=== PATIENT | female | born 1940 | race Caucasian/White ===

== ENCOUNTER → 2025-06-12 17:03 | Outpatient (CLI) | payer MEDICARE, OTHER, SELFPAY ==
[2025-06-12 17:23] LABS: Add Manual Diff / Slide Review NO; Hematocrit 35.2 % (36-46); Hemoglobin 11.9 g/dL (12.0-16.0); Lymphocytes Absolute Auto 1000 /uL (1100-4500); Mean Corpuscular HGB Conc 33.7 % (30-36); Mean Corpuscular Hemoglobin 30.2 PG (26-34); Mean Corpuscular Volume 89.6 fL (80-100); Platelet Count 299 X10^3/uL (150-400)
[2025-06-12 17:47] LABS: Alanine Aminotransferase 18 IU/L (<35); Albumin 3.7 g/dL (3.5-5.0); Albumin Globulin Ratio 1.4 (1.0-2.8); Alkaline Phosphatase 70 U/L (38-126); Blood Urea Nitrogen 20 mg/dL (7-17); Calcium 9.3 mg/dL (8.4-10.2); Carbon Dioxide 28 mmol/L (22-32); Chloride 100 mmol/L (98-107); Estimated Glomerular Filt Rate > 60 mL/min (>60); Globulin 2.7 g/dL (1.7-4.1); Glucose 97 mg/dL (70-99); HEMOLYSIS < 15 (0-50); Potassium 4.3 mmol/L (3.4-5.1); Sodium 135 mmol/L (137-145); Total Protein 6.4 g/dL (6.3-8.2)
[2025-06-12 18:17] LABS: Carcinoembryonic Antigen 1.2 ng/mL (0.1-3.0)
[2025-06-13 06:40] LABS: Cancer (Carbohydrate) Ag 19-9 8 U/mL (0-35)
== END ==
LOC: LAB 17:07
PROVIDERS: Referring Provider Physician Assistant; Visit Provider Physician Assistant
DX: C15.5 Malignant neoplasm of lower third of esophagus (principal)
CPT/HCPCS: 36415; 80053; 82378; 85025; 86301

== ENCOUNTER → 2025-09-27 10:11 | Outpatient (CLI) | payer MEDICARE, SELFPAY ==
[2025-09-27 12:07] LABS: Add Manual Diff / Slide Review NO; Hematocrit 38.7 % (36-46); Hemoglobin 13.3 g/dL (12.0-16.0); Lymphocytes Absolute Auto 1700 /uL (1100-4500); Mean Corpuscular HGB Conc 34.5 % (30-36); Mean Corpuscular Hemoglobin 29.3 PG (26-34); Mean Corpuscular Volume 84.8 fL (80-100); Platelet Count 261 X10^3/uL (150-400)
[2025-09-27 12:22] LABS: HEMOLYSIS < 15 (0-50); Iron 84 ug/dL (37-170)
[2025-09-27 12:29] LABS: Alanine Aminotransferase 15 IU/L (<35); Albumin 4.3 g/dL (3.5-5.0); Albumin Globulin Ratio 1.5 (1.0-2.8); Alkaline Phosphatase 92 U/L (38-126); Blood Urea Nitrogen 18 mg/dL (7-17); Calcium 9.6 mg/dL (8.4-10.2); Carbon Dioxide 27 mmol/L (22-32); Chloride 100 mmol/L (98-107); Estimated Glomerular Filt Rate > 60 mL/min (>60); Globulin 2.8 g/dL (1.7-4.1); Glucose 94 mg/dL (70-99); HEMOLYSIS < 15 (0-50); Potassium 4.5 mmol/L (3.4-5.1); Sodium 135 mmol/L (137-145); Total Protein 7.1 g/dL (6.3-8.2)
[2025-09-27 12:38] LABS: Percent Iron Saturation 29 % (15-50); Total Iron Binding Capacity 291 ug/dL (265-497); Transferrin 264 mg/dL (206-381)
[2025-09-27 13:03] LABS: Thyroid Stimulating Hormone 1.07 uIU/mL (0.47-4.68)
[2025-09-27 13:06] LABS: Ferritin 44 ng/mL (11-264)
[2025-09-27 13:38] LABS: Folate > 20.0 ng/mL (2.76-20.0); Vitamin B12 794 pg/mL (239-931)
== END ==
LOC: LAB 10:13
PROVIDERS: PCP Student in an Organized Health Care Education/Training Program; Referring Provider Student in an Organized Health Care Education/Training Program; Visit Provider Student in an Organized Health Care Education/Training Program
DX: L65.9 Nonscarring hair loss, unspecified (principal)
CPT/HCPCS: 36415; 80053; 82607; 82728; 82746; 83540; 83550; 84443; 85025

== ENCOUNTER → 2025-10-09 07:59 | Outpatient (CLI) | payer MEDICARE, SELFPAY ==
--- NOTE | 2025-10-09 08:01 | DI.MRI.S_ITS ---
PROCEDURE: MR HIP RT WO/W CON INDICATIONS: right hip pain. TECHNIQUE: Noncontrast coronal T1 spin echo and STIR through the bony pelvis. Coronal and axial T2 fast spin echo with fat saturation, axial T1 spin echo with fat saturation, sagittal T1 spin echo, and oblique axial T2 fast spin echo with fat saturation through the hip. Post-contrast axial, coronal, and sagittal spin echo with fat saturation through the hip. COMPARISON: [facility], CR, ORTHO-XR HIP RT 2V, 10/03/2025, 8:58. FINDINGS: Quality: Adequate. Hip: Labrum: Complex tearing of the anterosuperior labrum likely degenerative.. Cartilage: Full-thickness cartilage loss along the superior femoral head with subchondral marrow edema like lesion. Joint: No effusion. Bone: No fracture. No avascular necrosis. Muscles and tendons: Chronic partial tear of right common hamstring tendon origin suspected. Bursa: Trochanteric bursa: Nondistended. Iliopsoas bursa: Nondistended. Other: Internal fixation of left proximal femur. Partial tear of left common hamstring tendon origin. Severe degenerative changes of the spine. Diverticulosis. IMPRESSION: Severe right hip osteoarthritis. Chronic hamstring tendon tears. Dictated by: Aman Heard M.D. on 10/09/2025 at 15:52 Approved by: Aman Heard M.D. on 10/09/2025 at 15:59
--- OUTSIDE RECORDS SUMMARY | 2025-10-11 09:30 | XMS_ITS | Encounter Summary ---
Author Organization [facility] Address [address] [place] [address] Care Team Providers Care Family Service Aide Name Role Phone Yefri Means MD Primary Care Provider Jorje Harrison MD Unavailable [phone] Marshal Gallagher MD Unavailable [phone] Catherine Nieves MD Unavailable [phone] Laila Farris MD Unavailable [phone] Samm Agee MD Unavailable [phone] Edmund Morrison MD Unavailable [phone] Unavailable Unavailabl e Encounter Details Date Type Department Care Team (Late st Contact Info) Description 10/11/2025 9:30 AM PST Office Visit [facility] [place] [address] [facility], [address] [place] [address] Ant Urbano MD [address] [facility] [id number] [place] [address] Dx: Nonrheumatic aortic valve stenosis (Primary Dx) Discharge Disposition: HOME/SELF CARE Social History Tobacco Use Types Packs/Day Years Used Date Smoking Tobacco: Never Smokeless Tobacco: Never Alcohol Use Standard Drinks/Week Comments Not Currently 0 (1 standard drink = 0.6 oz pur e alcohol) occaisional Comments Unknown Sex and Gender Information Value Date Recorded Sex Assigned at Female 04/11/2025 7:41 PM PDT Legal Sex Female 9:18 AM PST Gender Identity Female 04/11/2025 7:41 PM PDT Sexual Orientation Straight 04/11/2025 7: 41 PM PDT documented as of this encounter Last Filed Vital Signs Vital Sign Reading Time Taken Comments Blood Pressure 134/71 10/11/2025 9:58 AM PST Pulse 103 10/11/2025 9:58 AM PST Temperature 36.3 C (97.3 F) 10/11/2025 9:58 AM PST Respiratory Rate - - Oxygen Saturation 95% 10/11/2025 9:58 AM PST Inhaled Oxygen Concentration - - Weight 48.9 kg (107 lb 12.8 oz) 10/11/2025 9:58 AM PST Height 160 cm (5' 3) 10/11/2025 9:58 AM PST Body Mass Index 19.1 10/11/2025 9:58 AM PST documented in this encounter Plan of Treatment Upcoming Encounters Date Type Department Care Team (Latest Contact Info) Description 10/11/2025 12:51 PM PST Hospital Encounter [facility] [address] [facility], [address] [place] [address] Dx: Aortic valve stenosis, nonrheumatic Scheduled Orders Name Type Priority Associated Diagnoses Orde r Schedule EKG 12-Lead ECG Routine Nonrheumatic aortic valve stenosis Ordered: 10/10/2025 Scheduled Procedures Name Priority Associated Diagnoses Date/Ti me TRANSCATHETER AORTIC VALVE REPLACEMENT (TAVR) Aortic stenosis documented as of this encounter Visit Diagnoses Diagnosis Nonrheumatic aortic valve stenosis- Primary Aortic valve disorders Aortic valve stenosis, nonrheumatic Aortic valve disorders documented in this encounter Care Teams Family Service Aide Relationship Specialty Start Date End Date Yefri Means MD [facility] [address] [place] [address] PCP - General Internal Medicine 03/27/25 Jorje Harrison MD [address] [place] [id number] Otolaryngology 03/27/25 Marshal Gallagher MD [facility] [address] [place], [place] [id number] Gastroenterology 03/27/25 Catherine Nieves MD [address] [place] [address] [address] [place] [address] Cardiology 03/27/25 Laila Farris MD [address] [place] [address] Oncologist Medical Oncology 03/28/25 Samm Agee MD [address] [place] [address] Radiation Oncology 03/28/25 Edmund Morrison MD [address] [facility] [id number] [place] [address] Surgical Oncologist General Surgery 04/09/25 Shari Cool, [place] [address] [facility] [id number] [place] [address] Dietitian Dietitian-Data Compiler 04/18/25 documented as of this encounter
--- OUTSIDE RECORDS SUMMARY | 2025-10-11 10:00 | XMS_ITS | Encounter Summary ---
Author Organization [facility] Address [address] [place] [address] Care Team Providers Care Naturopathic Oncology Provider Name Role Phone Yefri Means MD Primary Care Provider Jorje Harrison MD Unavailable [phone] Marshal Gallagher MD Unavailable [phone] Catherine Nieves MD Unavailable [phone] Laila Farris MD Unavailable [phone] Samm Agee MD Unavailable [phone] Edmund Morrison MD Unavailable [phone] Unavailable Unavailabl e Reason for Referral * Tests (Routine) - Pending Review Specialty Diagnoses / Procedures Referred By Kai t Referred To Contact Diagnoses Aortic stenosis Procedures TransTHORACIC echo (TTE) complete [place] PA-C [address] [place] [address] Phone: tel: fax: [facility] [address] [facility], [address] [place] [address] Phone: tel: Referral ID Status Reason Start Date Expiration Date Visits Requested Visits Authorized [id number] Pending Review Cardiac Ultrasound 11/10/2026 1 1 Reason for Visit * Specialty Visit (Urgent) - Closed Specialty Diagnoses / Procedures Referred By Contac t Referred To Contact Cardiology Diagnoses Nonrheumatic aortic (valve) stenosis Procedures eval and treat - TAVEvi Delvalle MD [facility] [address] [place] [address] Phone: tel: fax: [facility] [address] [place] [address] Phone: tel: fax: Referral ID Status Reason Start Date Expiration Date V isits Requested Visits Authorized [id number] Closed Structural Heart 10/07/2025 10/07/2026 1 1 Encounter Details Date Type Department Care Team ([facility] st Contact Info) Description 10/11/2025 10:00 AM PST Office Visit [facility] [address] [place] [address] Liam Gaona MD [address] [facility] [id number] [place] [address] Dx: Nonrheumatic aortic valve stenosis (Primary Dx) Discharge Disposition: 01 HOME/SELF CARE Social History Tobacco Use Types [...] Time Taken Comments Blood Pressure 134/71 10/11/2025 10:01 AM PST Pulse 103 10/11/2025 10:01 AM PST Temperature 36.3 C (97.3 F) 10/11/2025 10:01 AM PST Respiratory Rate - - Oxygen Saturation 95% 10/11/2025 10: 01 AM PST Inhaled Oxygen Concentration - - Weight 48.9 kg (107 lb 12.8 oz) 025 10:01 AM PST Height 160 cm (5' 3) 10/11/2025 10:01 AM PST Body Mass Index 19.1 10/11/2025 10:01 AM PST documented in this encounter Patient Instructions * Patient Instructions* Fang Love, RN - 10/11/2025 10:00 AM PST Today, you were evaluated for Transcatheter Aortic Valve Replacement (TAVR) at the [facility]. This evaluation process can be complex and may require multiple tests to ensure that you are being treated appropriately and safely. You were seen by: Pathologist: Dr. Gaona Cardiac Surgeon: Dr. Urbano Additional pre-procedure assessments: [x] CT Scan @ 3:45pm [] Pre-Anesthesia Health Assessment (PHA) Questionnaire [] KCCQ Questionnaire [] ECG [] Heart Team Meeting review --> Our providers will formally review your case & imaging are our next Heart Team meeting and determine whether open heart surgery or a transcatheter procedure is more appropriate for you. AnRN on our team will contact you afterward with the decision. [facility] VISITOR POLICY Updated 06/08/2022 Medicine has implemented restricted visitation to prevent the spread of COVID-19. Patients are allowed one to two visitors per day in the hospital. Only one visitor per patient is allowed in the Emergency Department, Operating Room waiting areas and for patients located in double occupancy rooms. Visitors will not be allowed to enter the facility if they have any new COVID- like symptoms or high-risk exposures within the last 10 days. Everyone over the age of 2 must wear an approved mask at all times covering their nose and mouth. If needed, one will be provided upon entry. Visitors who do not follow our masking policy may be asked to leave the building. To maximize safety, visitors may not consume food or beverages in lobbies, waiting areas, shared patient spaces (patient rooms with more than 1 patient or patient care spaces by curtains), or when healthcare workers are present in the patient care space. Visitors may schedule virtual visits by contacting the patient???s nurse who will facilitate a visit. PROCEDURE DETAILS PROCEDURE: Transcatheter Aortic Valve Replacement (TAVR) with Dr. Gaona (Pathologist) and Dr. Urbano (Cardiac Surgeon) DATE: TBD CHECK-IN TIME: TBD WHERE: [facility] (2nd floor, across from Radiology) [facility] [address] [place] [address] Please arrive at the check in time assigned to you, we are not able to bring you back to the pre-oparea if you arrive before your check in time due to limited staffing and beds. While we want you toarrive at your scheduled time, you may still need to wait to be brought back to the pre-op area, especially if earlier cases take longer than expected or there are any emergencies. In extreme cases this wait can be as long as 2-7 hours, so please come prepared with something to help keep you occupied. We understand that many patients do need to wait and we are doing our best to manage patient, provider and staff needs to treat as many patients as we can. PRE-PROCEDURE INSTRUCTIONS Medications: DO NOT take any of your oral home medications on the morning of your procedure (inhalers OK to use,if applicable) No food or non-clear drinks after MIDNIGHT on the day of procedure. Clear liquids OK until 2 hours prior to check in. Take TWO pre-op showers with chlorhexidine (CHG) antibacterial soap (directions below) Evening before (#1) and morning of procedure (#2) Wash from the NECK down only (OK to use your own shampoo and face products) Leave the soap on your skin for 60 seconds before rinsing Do not apply any products on your face, skin, or hair (i.e., deodorant, lotions, makeup) afterward. Wear clean, loose clothing when coming to the hospital Please avoid shaving for 48 hours prior to your procedure Leave jewelry/valuables at home or with your family Bring: Photo ID & insurance card(s) Current medication list (you do not need to bring the pills or bottles) Inhalers (if applicable) Eyeglasses, dentures, and/or hearing aids (with the cases) CPAP or BiPAP machine and mask (if applicable) Legal paperwork (i.e., Durable Power of Healthcare Animal Care Specialist) POST-PROCEDURE PRECAUTIONS Incision Care Bruising at or near the puncture sites is common after the procedure, but check frequently for any bleeding (external or internal), swelling, or signs of infection (redness, heat, drainage) You may shower the following day, but avoid soaking in water (i.e., bathing, sitting in a hot tub, or swimming) until 2 days after your procedure. Any bandages can be removed 48 hours after your procedure (remove in the shower or with a warm cloth to avoid tugging over the site). Activity Precautions No driving for 2 days after the procedure. Please pre-arrange a ride home after discharge. No lifting, pushing or pulling anything heavier than 5-10 pounds for 2 weeks after the procedure. Avoid straining during bowel movements (consider purchasing stool softeners to help with this). WHAT IS OK? Light walking, going up/down stairs, light chores Home Monitoring We highly recommend checking your vital signs (blood pressure, heart rate, and weight) daily for atleast two weeks after your procedure. Keep a log and bring it to your follow up visit Please purchase these tools (if you don't already have them): Automatic blood pressure cuff Scale Dental Work Patients should avoid dental work for the first 6 months following your procedure. After that time period, you will require antibiotics prior to any dental work for the life of the valve. Per the [employer], your dentist can prescribe these antibiotics for you. FOLLOW UP APPOINTMENTS Your follow up appointments with the Structural Heart team will be at 1 month and 1 year after yourprocedure. At these visits, you will have an echocardiogram first and an office visit to follow. Please let us know if you have any concerns about this visit. CARDIAC REHAB Our team will send a referral for you to join a supervised rehab program. Exercises will be prescribed to help you build strength and movement. The first month will most likely include easier exercises. Over time, you???ll exercise harder to improve your endurance. Your heart, oxygen saturation, and blood pressure may be monitored as you work. Cardiac rehab programs are tailored to meet your needs. Some people may participate in the program for 6 weeks, while others will participate 6 months orlonger. Before leaving the hospital, your healthcare provider can provide contact and enrollment information. For Questions or Concerns, Contact: Structural Heart Nurse Line: Clinic Hours (Mon - Fri 8:00 am to 4:30 pm) Emergency/After Hours Line: Follow the prompts to speak with a triage nurse for a new or worsening symptom. An on-call provider may be contacted if necessary. 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 Tova presents alone. She was told that she has mild aortic in 2019, and recently found out that this has progressed to severe on TTE dated 02/22/25 as part of her cancer treatment evaluation. The images from this TTE are not yet available for review but per report demonstrated the following aorticvalve measurements: PV 4.3m/s, MG 47mmHg, ROXANA 0.62cm^2, EF 65%, moderate AR. She is quite active, enjoys walking 4 miles 3 times per week, without perceived limitations. She does endorse some fatigue that is progressive this year, although attributes this to her cancer therapy (proton beam radiation and chemotherapy). She denies chest pain, syncope, edema. NYHA CLASS: I-II REVIEW OF SYSTEMS: Except as noted in HPI, all other systems were reviewed were negative. PAST MEDICAL HISTORY: Patient Active Problem List Diagnosis Date Noted Dehydration [E86.0] 05/15/2025 Malignant neoplasm of lower third of esophagus (HCC) [C15.5] 03/28/2025 PAST SURGICAL HISTORY: Surgical History[1] OUTPATIENT MEDICATIONS: Current Medications[2] ALLERGIES: Review of patient's allergies indicates: No Known Allergies SOCIAL HISTORY: Social History Socioeconomic History Marital status: Spouse name: Not on file Number of children: Not on file Years of education: Not on file Highest education level: Not on file Occupational History Not on file Tobacco Use Smoking status: Never Smokeless tobacco: Never Substance and Sexual Activity Alcohol use: Yes Comment: occaisional Drug use: Never Sexual activity: Not on file Other Topics Concern Not on file Social History Narrative Lives in [place] alone 1 of 2 kids in the area never smoker rare use of alcohol 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 There is no height or weight on file to calculate BMI. There were no vitals taken for this visit. Physical Exam Constitutional: She appears healthy. No distress. Neck: No JVD present. Cardiovascular: Normal rate and regular rhythm. Pulmonary/Chest: Effort normal. Neurological: She is alert and oriented to person, place, and time. DIAGNOSTICS: Echo 03/14/25 Normal sinus rhythm. Normal LV size, wall thickness, wall motion and LV systolic function. EF is 60-65%. Moderate LA enlargement; otherwise normal chamber sizes. Aortic valve is a trileaflet structure characterized by severely thickened and calcified leaflets with severely reduced leaflet excursion. There is severe aortic stenosis with peak velocity of 4.3 m/sec; mean gradient of 47 mm Hg and calculated valve area of 0.62 cm squared. There is moderate associated aortic regurgitation with pressure half time of 397 mec. Moderate MAC. Moderate central TR with estimated PA systolic pressure of 27 mm Hg assuming RA pressure of 3 mm Hg. 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 Severe Patient with NYHA class I-II symptoms and TTE that demonstrates severe aortic valve stenosis. We discussed rationale for treating severe even in the absence of overt symptoms. We discussed the natural progression of aortic valve stenosis as well as the risks, benefits and alternatives to AV replacement with TAVR. The risks of TAVR were discussed, including but not limited to: stroke (2- 3%), bleeding (3-5%), paravalvular leak, dysrhythmia requiring heart block requiring permanent pacemaker (8% or greater if baseline bundle branch block), myocardial Infarction, vascular injury, need for emergent surgery or . All of the patient's questions were answered and the patient wishes to proceed with TAVR. The patient's case will be presented at the Structural Heart Team meeting for review and plan. Thisinformation will then be relayed to the patient for scheduling. The following testing is warranted/outstanding: CT --No dental procedures for 6 months after procedure, and will require antibiotic prophylaxis for life of the valve --Anticipatory guidance related to procedure --Anticoagulation/antiplatelet plan at discharge: ASA 81 mg indefinitely --Consent: discussed in detail, not signed --Insulin: N/A --Anesthesia: MAC --Contrast allergy: none, no premedication needed Patient seen and plan developed with attending physician, Dr. Gaona. Kenna Sharma MD Structural [facility] [1] Past Surgical History: Procedure Laterality Date EGD 02/11/2025 ENDOSCOPIC ULTRASOUND (UPPER) 02/22/2025 FEMUR FRACTURE SURGERY Left TOTAL ABDOMINAL HYSTERECTOMY [2] Current Outpatient Medications: acetaminophen 325 MG tablet, Take by mouth. (Patient not taking: Reported on 08/06/2025), Disp: , Rfl: biotin 1000 MCG tablet, Take by mouth daily., Disp: , Rfl: calcium carbonate 1250 (500 Ca) MG chewable tablet, Chew and swallow 1 tablet (500 mg of ELEMENTAL calcium) by mouth daily. (Patient not taking: Reported on 08/06/2025), Disp: , Rfl: CALCIUM MAGNESIUM ZINC OR, Take by mouth daily., Disp: , Rfl: cholecalciferol 25 MCG (1000 UT) chewable tablet, Chew and swallow 1 tablet (1,000 units) by mouth daily., Disp: , Rfl: dexAMETHasone 4 MG tablet, Take 2 tablets by mouth daily for 2 days - Start on day after each chemoinfusion then stop. (Patient not taking: Reported on 08/06/2025), Disp: 32 tablet, Rfl: 3 FISH OIL , Take 1 tablet by mouth daily., Disp: , Rfl: loperamide 2 MG capsule, Take 2 capsules by mouth with first episode of diarrhea, then 1 capsule bymouth with every loose stool until no diarrhea for 12 hours. Max of 8 capsules per day. (Patient not taking: Reported on 08/06/2025), Disp: 60 capsule, Rfl: 3 losartan 50 MG tablet, Take 1 tablet (50 mg) by mouth daily. (Patient not taking: Reported on 08/06/2025), Disp: , Rfl: Multiple Vitamins-Minerals (Multivitamin Adults) tablet, Take 1 tablet by mouth daily., Disp: , Rfl: oxyCODONE 5 MG/5ML solution, Take 5 mL (5 mg) by mouth every 4 hours as needed for severe pain. (Patient not taking: Reported on 08/06/2025), Disp: 200 mL, Rfl: 0 pantoprazole 40 MG EC tablet, Take 1 tablet (40 mg) by mouth daily on an empty stomach. (Patient not taking: Reported on 08/06/2025), Disp: , Rfl: polyethylene glycol 3350 17 GM/SCOOP oral powder, Take 17 g by mouth as needed for constipation. Fill cap with powder to the 17 gram jimbo and dissolve in 4 to 8 ounces of water. (Patient not taking: Reported on 08/06/2025), Disp: , Rfl: prochlorperazine 10 MG tablet, Take 1 tablet by mouth every 6 hours as needed for nausea/vomiting. (Patient not taking: Reported on 08/06/2025), Disp: 30 tablet, Rfl: 11 scopolamine 1 MG/3DAYS patch, Place 1 patch on the skin every 72 hours as needed for other (excess saliva / secretions). Apply to hairless area behind 1 ear. (Patient not taking: Reported on 08/06/2025), Disp: 3 patch, Rfl: 1 sucralfate 1 g tablet, Take 1 tablet by mouth 4 times a day. Dissolve 1 tablet in 15-30mL of water (room temperature or warm water). Swallow mixture after finishing a meal. (Patient not taking: Reported on 08/06/2025), Disp: 60 tablet, Rfl: 3 Cosigned by Liam Gaona MD at 10/11/2025 12:44 PM PST Associated attestation - Liam Gaona MD - 10/11/2025 12:44 PM PST Patient was seen and discussed with structural heart fellow Dr. Kenna Ma, and I agree with hernote as documented. Functional 85-year-old woman with minimally symptomatic, severe aortic stenosiswho is referred for TAVR. Will proceed with CTA this afternoon and discussion with our team meeting. documented in this encounter Plan of Treatment Upcoming Encounters Date Type Department Care Team (Latest Contact Info) Description 10/11/2025 12:51 PM PST Hospital Encounter [facility] [address] [facility], [address] [place] [address] Dx: Aortic valve stenosis, nonrheumatic Scheduled Orders Name Type Priority Associated Diagnoses Order Schedule TransTHORACIC echo (TTE) complete Echocardiography Routine Nonrheumatic aortic valve stenosis Expected: 11/10/2025 (Approximate), Expires: 10/11/2026 Scheduled Procedures Name Priority Associated Diagnoses Date/Ti me TRANSCATHETER AORTIC VALVE REPLACEMENT (TAVR) Aortic stenosis documented as of this encounter Visit Diagnoses Diagnosis Nonrheumatic aortic valve stenosis- Primary Aortic valve disorders Aortic valve stenosis, nonrheumatic Aortic valve disorders documented in this encounter Care Teams Naturopathic Oncology Provider Relationship Specialty Start Date End Date Yefri Means MD [address] [address] PCP - General Internal Medicine 03/27/25 Jorje Harrison MD [address] [place] [address] Otolaryngology 03/27/25 Marshal Gallagher MD [facility] [address] [place] [address] Gastroenterology 03/27/25 Catherine Nieves MD [address] [place] [address] [address] [place] [address] Cardiology 03/27/25 Laila Farris MD [address] [place] [address] Oncologist Medical Oncology 03/28/25 Samm Agee MD [address] [place] [address] Radiation Oncology 03/28/25 Edmund Morrison MD [address] [facility] [address] [place] [address] Surgical Oncologist General Surgery 04/09/25 Shari Cool, CHAPARRO [address] [facility] [id number] [place] [address] Dietitian Dietitian-Emergency Registrar 04/18/25 documented as of this encounter
--- OUTSIDE RECORDS SUMMARY | 2025-10-11 12:51 | XMS_ITS | Encounter Summary ---
Author Organization [facility] Address [address] [place] [address] Care Team Providers Care Area Field Worker Name Role Phone Yefri Means MD Primary Care Provider Jorje Harrison MD Unavailable [phone] Marshal Gallagher MD Unavailable [phone] Catherine Nieves MD Unavailable [phone] Laila Farris MD Unavailable [phone] Samm Agee MD Unavailable [phone] Edmund Morrison MD Unavailable [phone] Unavailable Unavailabl e Reason for Referral * Complex Imaging (Routine) - Pending Review Specialty Diagnoses / Procedures Referred By Conttatiana t Referred To Contact Radiology Med Diagnoses Aortic valve stenosis, nonrheumatic Procedures CTA Chest Abdomen Pelvis for TAVR/ TMVR Planning Alka Skinner ARNP [address] [facility] [address] [place] [address] Phone: tel: fax: [facility] [address] [facility], [address] [place] [address] Phone: tel: fax: Referral ID Status Reason Start Date Expiration Date V isits Requested Visits Authorized [id number] Pending Review 10/14/2025 10/14/2026 1 1 * Complex Imaging (Routine) - Pending Review Specialty Diagnoses / Procedures Referred By Contac t Referred To Contact Radiology Med Diagnoses Aortic valve stenosis, nonrheumatic Procedures CTA Heart for TAVR/ TMVR Planning Alka Skinner ARNP [address] [facility] [address] [place] [address] Phone: tel: fax: [facility] [address] [facility], [address] [place] [address] Phone: tel: fax: Referral ID Status Reason Start Date Expiration Date V isits Requested Visits Authorized [id number] Pending Review 10/14/2025 10/14/2026 1 1 Reason for Visit * Complex Imaging (Routine) - Pending Review Specialty Diagnoses / Procedures Referred By Contac t Referred To Contact Radiology Med Diagnoses Aortic valve stenosis, nonrheumatic Procedures CTA Chest Abdomen Pelvis for TAVR/ TMVR Planning Alka Skinner ARNP [address] [facility] [address] [place] [address] Phone: tel: fax: [facility] [address] [facility], [address] [place] [address] Phone: tel: fax: Referral ID Status Reason Start Date Expiration Date V isits Requested Visits Authorized [id number] Pending Review 10/14/2025 10/14/2026 1 1 Encounter Details Date Type Department Care Team (Latest Contact Info) Description 10/11/2025 12:51 PM PST Hospital Encounter [facility] [address] [facility], [address] [place] [address] Dx: Aortic valve stenosis, nonrheumatic Social History Tobacco Use Types Packs/Day Years [...] PM PDT documented as of this encounter Plan of Treatment Scheduled Orders Name Type Priority Associated Diagnoses Orde r Schedule CTA Heart for TAVR/ TMVR Planning Imaging Routine Aortic valve stenosis, nonrheumatic Once for 1 Occurrences starting 10/11/2025 until 10/11/2025 CTA Chest Abdomen Pelvis for TAVR/ TMVR Planning Imaging Routine Aortic valve stenosis, nonrheumatic Once for 1 Occurrences starting 10/11/2025 until 10/11/2025 Scheduled Procedures Name Priority Associated Diagnoses Date/Ti me TRANSCATHETER AORTIC VALVE REPLACEMENT (TAVR) Aortic stenosis documented as of this encounter Visit Diagnoses Diagnosis Aortic valve stenosis, nonrheumatic Aortic valve disorders documented in this encounter Care Teams Area Field Worker Relationship Specialty Start Date End Date Yefri Means MD [facility] [address] [place] [address] PCP - General Internal Medicine 03/27/25 Jorje Harrison MD [address] [place] [address] Otolaryngology 03/27/[address] [facility] [address] [place] [address] Gastroenterology 03/27/25 Catherine Nieves MD [address] [place] [address] [address] [place] [address] Cardiology 03/27/25 Laila Farris MD [address] [place] [address] Oncologist Medical Oncology 03/28/25 Samm Agee MD [address] [place] [address] Radiation Oncology 03/28/25 Edmund Morrison MD [address] [facility] [address] [place] [address] Surgical Oncologist General Surgery 04/09/[address] [facility] [address] [place] [address] Dietitian Dietitian-Spot Cleaner 04/18/25 documented as of this encounter
--- OUTSIDE RECORDS SUMMARY | 2025-10-11 13:29 | XMS_ITS | Encounter Summary ---
Author Organization [facility] Address [address] [place] [address] Care Team Providers Care Step Finisher Name Role Phone Yefri Means MD Primary Care Provider Jorje Harrison MD Unavailable [phone] Marshal Gallagher MD Unavailable [phone] Catherine Nieves MD Unavailable [phone] Laila Farris MD Unavailable [phone] Samm Agee MD Unavailable + [phone] Edmund [place] MD Unavailable [phone] Unavailable Unavailabl e Reason for Referral * Complex Imaging (Routine) - Pending Review Specialty Diagnoses / Procedures Referred By Conttatiana t Referred To Contact Radiology Med Diagnoses Aortic valve stenosis, nonrheumatic Procedures CTA Chest Abdomen Pelvis for TAVR/ TMVR Planning Alka Skinner ARNP [address] [facility] [address] [place] [address] Phone: tel: fax: [facility] [address] [facility], [address] [place] [address] Phone: tel: fax: Referral ID Status Reason Start Date Expiration Date V isits Requested Visits Authorized [id number] Pending Review 10/14/2025 10/14/2026 1 1 * Complex Imaging (Routine) - Pending Review Specialty Diagnoses / Procedures Referred By Kai mcdowell Referred To Contact Radiology Med Diagnoses Aortic valve stenosis, nonrheumatic Procedures CTA Heart for TAVR/ TMVR Planning Alka Skinner ARNP [address] [facility] [address] [place] [address] Phone: tel: fax: [facility] [address] [facility], [address] [place] [address] Phone: tel: fax: Referral ID Status Reason Start Date Expiration Date V isits Requested Visits Authorized [id number] Pending Review 10/14/2025 10/14/2026 1 1 Encounter Details Date Type Department Care Team (Late st Contact Info) Description 10/07/2025 Orders Only Heart [place] at [facility] [address] [place] [address] Hipolito Sequeira RN [address] [facility] [address] [place] [address] Aortic valve stenosis, nonrheumatic (Primary Dx) Social History Tobacco Use Types Packs/Day Years Used Date Smoking Tobacco: Never Smokeless Tobacco: Never Alcohol Use Standard Drinks/Week Comments Yes 0 (1 standard drink = 0.6 oz pur e alcohol) occaisional Comments Unknown Sex and Gender Information Value Date Recorded Sex Assigned at Female 04/11/2025 7:41 PM PDT Legal Sex Female 9:18 AM PST Gender Identity Female 04/11/2025 7:41 PM PDT Sexual Orientation Straight 04/11/2025 7: 41 PM PDT documented as of this encounter Plan of Treatment Upcoming Encounters Date Type Department Care Team (Latest Contact Info) Description 10/11/2025 12:51 PM PST Hospital Encounter [facility] [address] [facility], [address] [place] [address] Dx: Aortic valve stenosis, nonrheumatic Scheduled Orders Name Type Priority Associated Diagnoses Orde r Schedule CTA Heart for TAVR/ TMVR Planning Imaging Routine Aortic valve stenosis, nonrheumatic Expected: 10/14/2025 (Approximate), Expires: 11/06/2026 CTA Chest Abdomen Pelvis for TAVR/ TMVR Planning Imaging Routine Aortic valve stenosis, nonrheumatic Expected: 10/14/2025 (Approximate), Expires: 11/06/2026 Scheduled Procedures Name Priority Associated Diagnoses Date/Ti me TRANSCATHETER AORTIC VALVE REPLACEMENT (TAVR) Aortic stenosis documented as of this encounter Visit Diagnoses Diagnosis Aortic valve stenosis, nonrheumatic- Primary Aortic valve disorders Aortic valve stenosis, nonrheumatic Aortic valve disorders documented in this encounter Care Teams Step Finisher Relationship Specialty Start Date End Date Yefri Means MD [facility] [address] [place] [address] PCP - General Internal Medicine 03/27/25 Jorje Harrison MD [address] [place] [address] Otolaryngology 03/27/25 Marshal Gallagher MD [facility] [address] [place] [address] Gastroenterology 03/27/25 Catherine Nieves MD [address] [place] [address] [address] [place] [address] Cardiology 03/27/25 Laila Farris MD [address] [place] [address] [phone] Oncologist Medical Oncology 03/28/25 Samm Agee MD [address] [place] [address] Radiation Oncology 03/28/25 Edmund Morrison MD [address] [facility] [address] [place] [address] Surgical Oncologist General Surgery 04/09/[address] [facility] [address] [place] [address] Dietitian Dietitian-Suction Worker 04/18/25 documented as of this encounter
--- OUTSIDE RECORDS SUMMARY | 2025-10-11 13:29 | XMS_ITS ---
Author Organization [facility] Address [address] [place] [address] Care Team Providers Care Football Coach Name Role Phone Yefri Means MD Primary Care Provider Jorje Harrison MD Unavailable [phone] Marshal Gallagher MD Unavailable [phone] Catherine Nieves MD Unavailable [phone] Laila Farris MD Unavailable [phone] Samm Agee MD Unavailable + [phone] Edmund [place] MD Unavailable Shari Cool RD Unavailable Unavailabl e Active Problems Problem Noted Date Diagnosed Date Aortic stenosis 10/11/2025 Dehydration 05/15/2025 Malignant neoplasm of lower third of esophagus 0 03/28/2025 Current Treatment and Therapy Plans OP PACLitaxel / CARBOplatin / Concurrent Radiation* Plan Start Date:04/03/2025 Plan Provider:Laila Farris MD Linked Problems Malignant neoplasm of lower third of esophagus (HCC) Treatment Medications CARBOplatin (Paraplatin)CARB Oplatin (Paraplatin) in D5W 100 mL IVPB (by AUC)PACLitaxel (Taxol)PACLitaxel (Taxol) in D5W QS 100 mL IVPB Other Current Plans OP Hydration / Electrolytes Daily OR AM/PM* Plan Start Date:05/15/2025 Plan Provider:Denice Fuller ARNP Linked Problems Dehydration Treatment Medications No medications scheduled. Past Treatment and Therapy Plans No past plan information found. Current Radiation Episodes * Proton Beam: Not Applicable Esophagus, Not Applicable Lower esophagusOverview * First Treatment Date Latest Treatment Date Treatment Site Technique Goal Episode Provider 04/18/2025 05/29/2025 EsophagusLower esophagus Proton Beam * Linked Problems Malignant neoplasm of lower third of esophagus Treatment Courses* Course 1 04/18/2025 - 05/29/2025 Treatment Sites Treatment Period Fraction Dose Fractions Total Dose Esophagus CD 05/22/2025 - 05/29/2025 164 / 164 cGy 820 / 818 cGy Esophagus 04/18/2025 - 05/21/2025 164 / 164 cGy 3 ,772 / 3,764 cGy
--- OUTSIDE RECORDS SUMMARY | 2025-10-11 13:29 | XMS_ITS | Clinical Summary ---
Author Organization [facility] Address [address] [place] [address] Care Team Providers Care Aviation Manager Name Role Phone Evi Hoffman MD Primary Care Provider [phone] Allergies No known active allergies Medications ESTRADIOL ORAL Take by mouth A ctive losartan (COZAAR) 50 mg tablet Take 1 tablet (50 mg total) by mouth daily 4 Active pantoprazole (PROTONIX) 40 mg EC tablet Take 1 tablet (40 mg total) by mouth daily Take 30 min before eating 30 tablet 11 5 02/12/20 26 Active Additional Information Patient not taking.Reported on 08/28/2025 MULTIVITAMIN ORAL Take 1 tablet by mouth daily Active cholecalciferol , vitamin D3, (VITAMIN D3 ORAL) Take 1 tablet by mouth daily Active FISH OIL-DHA-EPA ORAL Take 1 tablet by mouth daily Active calcium carbonate (CALCIUM 500 ORAL) Take 1 tablet by mouth daily Active dexAMETHasone (DECADRON) 4 mg tablet Take 2 tablets (8 mg total) by mouth daily 5 Active loperamide (IMODIUM) 2 mg capsule Take 2 capsules by mouth with first episode of diarrhea, then 1 capsule by mouth with every loose stool until no diarrhea for 12 hours. Max of 8 capsules per day. 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 02/21/2025 Gastroesophageal cancer 02/15/2025 Generalized abdominal pain 02/06/2025 Esophageal dysphagia 02/06/2025 Encounters Date Type Department Care Team Description 08/28/2025 1:00 PM PDT Office Visit [facility] Ear[facility] Nose and Throat [address] [address] Jorje Harrison MD Impacted cerumen of both ears (Primary Dx); Bilateral sensorineural hearing loss from Last 3 Months Immunizations Immunization Administration Dates Next Due Moderna SARS-CoV-2 Vaccine Monovalent 01/19/2021 ,12/22/2020 Family History Medical History Relation Comments Breast cancer Cousin Breast cancer Mother's Sister Relation Status Comments Cousin Mother's Sister Social History Tobacco Use Types Packs/Day Years Used Date Smoking Tobacco: Never Passive Smoke Exposure: Past Smokeless Tobacco: Never Passive Exposure Comments:Pa rents smoked in the home Alcohol Use Standard Drinks/Week Comments Yes 0 (1 standard drink = 0.6 oz pur e alcohol) occasional AUDIT-C Answer Date Recorded Q1: How often do you have a drink containing alc ohol? Monthly or less 12/02/2020 Q2: How many drinks containi ng alcohol do you have on a typical day when you are drinking? 1 or 2 12/02/2020 Q3: How often do you have si x or more drinks on one occasion? Never 12/02/2020 Comments No Sex and Gender Information Value Date Recorded Sex Assigned at Not on file Legal Sex Female 8:57 AM PDT Gender Identity Not on file Sexual Orientation Not on file Last Filed Vital Signs Vital Sign Reading Time Taken Comments Blood Pressure 188/87 08/28/2025 12:50 PM PDT Pulse 82 08/28/2025 12:45 PM PDT Temperature 37 C (98.6 F) 02/22/2025 11:35 AM PDT Respiratory Rate 20 02/22/2025 12:40 PM PDT Oxygen Saturation 97% 08/28/2025 12:45 PM PDT Inhaled Oxygen Concentration - - Weight 48 kg (105 lb 12.8 oz) 08/28/2025 12:45 P M PDT Height 160 cm (5' 3) 08/28/2025 12:45 PM PDT Body Mass Index 18.74 08/28/2025 12:45 PM PDT Plan of Treatment Upcoming Encounters Date Type Department Care Team (Late st Contact Info) Description 01/13/2026 1:00 PM PST Office Visit [facility] Ear, Nose and Throat [address] [address] Jorje Harrison MD [address] [place] [address] Health Maintenance Due Date Last Done Comments Medicare Annual Wellness (AWV) 1940 Depression Screening (PHQ-2) 1952 DTaP,Tdap,and Td Vaccines (1 - Tdap) 1959 HM Pneumococcal Adult 50+ (1 of 2 - PCV) 1959 Zoster Vaccines (1 of 2) 1959 Fall Risk Screening 2005 RSV Patients Over 60 years O R qualifying ( Patients) (1 - 1-dose 75+ series) 2015 COVID-19 Vaccine (3 - Modern a risk series) 02/16/2021 01/19/2021, 12/22/2020 Influenza Vaccine (#1) 2025 HPV Vaccines Aged Out No longer eligi ble based on patient's age to complete this topic Hepatitis A Vaccines Aged Out No long er eligible based on patient's age to complete this topic Hepatitis B Vaccines Aged Out No long er eligible based on patient's age to complete this topic IPV Vaccines Aged Out No longer eligi ble based on patient's age to complete this topic MMR Vaccines Aged Out No longer eligi ble based on patient's age to complete this topic Insurance MEDICARE PART A AND B AARP SUPP Advance Directives * Full Code (Latest Code Status on File) Date Activated Date Inactivated Comments 02/22/2025 11:10 AM 02/22/2025 2:50 PM Question Answer Comments Discussed the code status with patient and/or fa kin: Yes Care Teams Aviation Manager Relationship Specialty Start Date End Date Evi Hoffman MD [address], [place] [address] PCP - General Family Medicine 10/11/25
--- OUTSIDE RECORDS SUMMARY | 2025-10-11 13:29 | XMS_ITS | Encounter Summary ---
Author Organization [facility] Address [address] [place] [address] Care Team Providers Care Drapery And Upholstery Estimator Name Role Phone Evi Hoffman MD Primary Care Provider [phone] Encounter Details Date Type Department Care Team ([facility] Contact Info) Description 02/27/2025 Abstract [facility] Health Information Management [address] [place] [address] [facility] Past Due Accounts Clerk, Provider, Social History Tobacco Use Types Packs/Day Years [...] on file Sexual Orientation Not on file documented as of this encounter Plan of Treatment Upcoming Encounters Date Type Department Care Team (Late Contact Info) Description 01/13/2026 1:00 PM PST Office Visit [facility] Ear[facility] Nose and Throat [address] [address] Jorje Harrison MD [address] [place] [address] documented as of this encounter Procedures Procedure Name Priority Date/Time Associated Diagnosis Comments MAMMOGRAPHY Routine 02/09/2018 documented in this encounter Results * External/Historical Mammography (02/09/2018) Mammogram [facility] us Ordering Provider [facility] Final Resul t documented in this encounter Visit Diagnoses Not on filedocumented in this encounter Care Teams Drapery And Upholstery Estimator Relationship Specialty Start Date End Date Evi Hoffman MD [address] [place] [address] PCP - General Family Medicine 10/11/25 documented as of this encounter
--- OUTSIDE RECORDS SUMMARY | 2025-10-11 13:29 | XMS_ITS | Encounter Summary ---
Author Organization [facility] Address [address] [place] [address] Care Team Providers Care Lead Ramp Agent Name Role Phone Yefri Means MD Primary Care Provider Jorje Harrison MD Unavailable [phone] Marshal Gallagher MD Unavailable [phone] Catherine Nieves MD Unavailable [phone] Laila Farris MD Unavailable [phone] Samm Agee MD Unavailable [phone] Edmund [place] MD Unavailable [phone] Unavailable Unavailabl e Reason for Visit * Reason Onset Date Comments Appointment 10/08/2025 Encounter Details Date Type Department Care Team ([facility] st Contact Info) Description 10/08/2025 Telephone Heart [place] at [facility] [address] [place] [address] Provider, Contact Center Appointment Social History Tobacco Use Types Packs/Day Years [...] PM PDT documented as of this encounter Miscellaneous Notes * Telephone Encounter - Darren Crowe - 10/09/2025 11:31 AM PST Patient has been scheduled for 10/11. Done. Closing TE. * Telephone Encounter - Helen Jefferson - 10/08/2025 8:27 AM PST RETURN CALL: Voicemail - Detailed Message SUBJECT: Appointment Request REASON FOR VISIT: Nonrheumatic aortic (valve) stenosis PREFERRED DATE/TIME: 1st available REASON UNABLE TO APPOINT: Urgent referral, [id number], no scheduling instructions. Thank you! documented in this encounter Plan of Treatment Upcoming Encounters Date Type Department Care Team (Latest Contact Info) Description 10/11/2025 12:51 PM PST Hospital Encounter [facility] [address] [facility], [address] [place] [address] Dx: Aortic valve stenosis, nonrheumatic Scheduled Procedures Name Priority Associated Diagnoses Date/Ti me TRANSCATHETER AORTIC VALVE REPLACEMENT (TAVR) Aortic stenosis documented as of this encounter Visit Diagnoses Not on filedocumented in this encounter Care Teams Lead Ramp Agent Relationship Specialty Start Date End Date Yefri Means MD [facility] [address] [place] [address] PCP - General Internal Medicine 03/27/25 Jorje [place] MD [address] [place] [address] Otolaryngology 03/27/25 Marshal Gallagher MD [facility] [address] [place] [address] Gastroenterology 03/27/25 Catherine Nieves MD [address] [place] [address] [address] [place] [address] Cardiology 03/27/25 Laila Farris MD [address] [place] [address] Oncologist Medical Oncology 03/28/25 Samm Agee MD [address] [place] [address] Radiation Oncology 03/28/25 Edmund [place] MD [address] [facility] [address] [place] [address] Surgical Oncologist General Surgery 04/09/25 Shari Cool, CHAPARRO [address] [facility] [address] [place] [address] Dietitian Dietitian-Nurse Practitioner Physicians Assistant 04/18/25 documented as of this encounter
--- OUTSIDE RECORDS SUMMARY | 2025-10-11 13:29 | XMS_ITS | Encounter Summary ---
Author Organization [facility] Address [address] [place] [address] Care Team Providers Care Certified Credit Counselor Name Role Phone Yefri Means MD Primary Care Provider Jorje Harrison MD Unavailable [phone] Marshal Gallagher MD Unavailable [phone] Catherine Nieves MD Unavailable +[phone] Laila Farris MD Unavailable [phone] Samm Agee MD Unavailable [phone] Edmund [place] MD Unavailable [phone] Unavailable Unavailabl e Reason for Visit * Reason Onset Date Comments Care Coordination 10/11/2025 [facility] Shared Dec ision-making Meeting & STS Risk Score Documentation (for STS/ACC TVT Registry) Encounter Details Date Type Department Care Team (Late st Contact Info) Description 10/11/2025 Telephone Heart [place] at [facility] [address] [place] [address] Liam Gaona MD [address] [facility] [address] [place] [address] Care Coordination ([facility] Shared Decision-making Meeting & STS Risk Score Documentation (for STS/ACC TVT Registry)/) Social History Tobacco Use Types Packs/Day Years [...] Description 10/11/2025 12:51 PM PST Hospital Encounter [facility] [address], [address] [place] [address] Dx: Aortic valve stenosis, nonrheumatic Scheduled Procedures Name Priority Associated Diagnoses Date/Ti me TRANSCATHETER AORTIC VALVE REPLACEMENT (TAVR) Aortic stenosis documented as of this encounter Visit Diagnoses Not on filedocumented in this encounter Care Teams Certified Credit Counselor Relationship Specialty Start Date End Date Yefri Means MD [facility] [address] [place] [address] PCP - General Internal Medicine 03/27/25 Jorje Harrison MD [address] [place] [address] Otolaryngology 03/27/25 Marshal Gallagher MD [facility] [address] [place] [address] Gastroenterology 03/27/25 Catherine Nieves MD [address] [place] [address] [address] [place] [address] Cardiology 03/27/25 Laila Farris MD [address] [place] [address] Oncologist Medical Oncology 03/28/25 Samm Agee MD [address] [place] [address] Radiation Oncology 03/28/25 Edmund [place] MD [address] [facility] [address] [place] [address] Surgical Oncologist General Surgery 04/09/25 Shari Cool, CHAPARRO [address] [facility] [address] [place] [address] Dietitian Dietitian-Casey Saw Operator 04/18/25 documented as of this encounter
--- OUTSIDE RECORDS SUMMARY | 2025-10-11 13:29 | XMS_ITS | Clinical Summary ---
Author Organization [facility] Address [address] [place] [address] Care Team Providers Care Candle Extrusion Machine Operator Name Role Phone Yefri Means MD Primary Care Provider Jorje Harrison MD Unavailable [phone] Marshal Gallagher MD Unavailable [phone] Catherine Nieves MD Unavailable [phone] Laila Farris MD Unavailable [phone] Samm Agee MD Unavailable [phone] Edmund Morrison MD Unavailable Shari Cool RD Unavailable Unavailabl e Allergies No known active allergies Medications losartan 50 MG tablet Take 1 tablet (50 mg) by mouth daily. 4 Active pantoprazole 40 MG EC tablet Take 1 tablet (40 mg) by mouth daily on an empty stomach. Active dexAMETHasone 4 MG tabletIndicatio ns:Malignant neoplasm of lower third of esophagus (HCC) Take 2 tablets by mouth daily for 2 days - Start on day after each chemo infusion then stop. 32 tablet 3 04/09/2025 4:39 PM PDT 5 Active Additional Information Patient not taking.Reported on 08/06/2025 prochlorperazin e 10 MG tabletIndicatio ns:Malignant neoplasm of lower third of esophagus (HCC) Take 1 tablet by mouth every 6 hours as needed for nausea/vomiting. 30 tablet 11 04/09/2025 4:39 PM PDT 5 Active Additional Information Patient not taking.Reported on 08/06/2025 loperamide 2 MG capsuleIndicati ons:Malignant neoplasm of lower third of esophagus (HCC) Take 2 capsules by mouth with first episode of diarrhea, then 1 capsule by mouth with every loose stool until no diarrhea for 12 hours. Max of 8 capsules per day. 60 capsule 3 04/09/2025 4:39 PM PDT 5 Active Additional Information Patient not taking.Reported on 08/06/2025 calcium carbonate 1250 (500 Ca) MG chewable tablet Chew and swallow 1 tablet (500 mg of ELEMENTAL calcium) by mouth daily. Active Multiple Vitamins-Minera ls (Multivitamin Adults) tablet Take 1 tablet by mouth daily. Active FISH OIL Take 1 tablet by mouth daily. Active cholecalciferol 25 MCG (1000 UT) chewable tablet Chew and swallow 1 tablet (1,000 units) by mouth daily. Active acetaminophen 325 MG tablet Take by mouth. A ctive sucralfate 1 g tabletIndicatio ns:Malignant neoplasm of lower third of esophagus (HCC) Take 1 tablet by mouth 4 times a day. Dissolve 1 tablet in 15-30mL of water (room temperature or warm water). Swallow mixture after finishing a meal. 60 tablet 3 05/08/2025 11:25 AM PDT 5 Active Additional Information Patient not taking.Reported on 08/06/2025 polyethylene glycol 3350 17 GM/SCOOP oral powder Take 17 g by mouth as needed for constipation. Fill cap with powder to the 17 gram jimbo and dissolve in 4 to 8 ounces of water. Active scopolamine 1 MG/3DAYS patchIndication s:Malignant neoplasm of lower third of esophagus (HCC) Place 1 patch on the skin every 72 hours as needed for other (excess saliva / secretions). Apply to hairless area behind 1 ear. 3 patch 1 5 Active Additional Information Patient not taking.Reported on 08/06/2025 oxyCODONE 5 MG/5ML solutionIndicat ions:Malignant neoplasm of lower third of esophagus (HCC) Take 5 mL (5 mg) by mouth every 4 hours as needed for severe pain. 200 mL 5 Active Additional Information Patient not taking.Reported on 08/06/2025 CALCIUM MAGNESIUM ZINC OR Take by mouth daily. Active biotin 1000 MCG tablet Take by mouth daily. Active Active Problems Problem Noted Date Diagnosed Date Aortic stenosis 10/11/2025 Dehydration 05/15/2025 Malignant neoplasm of lower third of esophagus 0 03/28/2025 Encounters Date Type Department Care Team Description 10/11/2025 12:51 PM [facility] Hospital Encounter [facility] [address] [facility], [address] [place] [address] Dx: Aortic valve stenosis, nonrheumatic 10/11/2025 10:00 AM PST Office Visit [facility] [address] [place] [address] Liam Gaona MD Dx: Nonrheumatic aortic valve stenosis (Primary Dx) Discharge Disposition: 01 HOME/SELF CARE 10/11/2025 9:30 AM PST Office Visit [facility] [address] [facility] [address] [place] [address] Ant Urbano MD Dx: Nonrheumatic aortic valve stenosis (Primary Dx) Discharge Disposition: 01 HOME/SELF CARE 10/11/2025 Telephone [facility] [address] [place] [address] Liam Gaona MD Care Coordination ([facility] Shared Decision-making Meeting & STS Risk Score Documentation (for STS/ACC TVT Registry)/) 10/08/2025 Telephone [facility] [address] [place] [address] Provider, Contact Center Appointment 10/07/2025 Orders Only [facility] [address] [place] [address] Hipolito Sequeira RN Aortic valve stenosis, nonrheumatic (Primary Dx) 08/06/2025 2:15 PM PDT Telemedicine [facility] [address] [place] [phone] Laila Farris MD Dx: Malignant neoplasm of lower third of esophagus (HCC) (Primary Dx) 07/23/2025 Patient E-mail [facility] [address] [place] [address] Telehealth Appointment moved 07/15/2025 7:40 AM PDT - 07/15/2025 11:59 PM PDT Hospital Encounter [facility] [address] [place] [address] Dx: Dehydration (Primary Dx) Discharge Disposition: 01 HOME/SELF CARE from Last 3 Months Family History Medical History Relation Comments Breast Cancer Maternal Aunt Breast Cancer Maternal Cousin Relation Status Comments Maternal Aunt Maternal Cousin Social History Tobacco Use Types Packs/Day Years Used Date Smoking Tobacco: Never Smokeless Tobacco: Never Tobacco Cessation:Counseling Given: Not Answered Alcohol Use Standard Drinks/Week Comments Not Currently 0 (1 standard drink = 0.6 oz pur e alcohol) occaisional Comments Unknown Sex and Gender Information Value Date Recorded Sex Assigned at Female 04/11/2025 7:41 PM PDT Legal Sex Female 9:18 AM PST Gender Identity Female 04/11/2025 7:41 PM PDT Sexual Orientation Straight 04/11/2025 7: 41 PM PDT Last Filed Vital Signs Vital Sign Reading Time Taken Comments Blood Pressure 134/71 10/11/2025 10:01 AM PST Pulse 103 10/11/2025 10:01 AM PST Temperature 36.3 C (97.3 F) 10/11/2025 10:01 AM PST Respiratory Rate 16 06/04/2025 7:19 AM PDT Oxygen Saturation 95% 10/11/2025 10: 01 AM PST Inhaled Oxygen Concentration - - Weight 48.9 kg (107 lb 12.8 oz) 025 10:01 AM PST Height 160 cm (5' 3) 10/11/2025 10:01 AM PST Body Mass Index 19.1 10/11/2025 10:01 AM PST Plan of Treatment Upcoming Encounters Date Type Department Care Team (Latest Contact Info) Description 10/11/2025 12:51 PM PST Hospital Encounter [facility] [address] [facility] [address] [place] [address] Dx: Aortic valve stenosis, nonrheumatic Scheduled Procedures Name Priority Associated Diagnoses Date/Ti me TRANSCATHETER AORTIC VALVE REPLACEMENT (TAVR) Aortic stenosis Health Maintenance Due Date Last Done Comments Depression Screening (PHQ-2) 1952 Medicare Annual Wellness Visit 1958 DTaP, Tdap and Td Vaccines ( 1 - Tdap) 1959 Lipid Disorders Screening 1970 Pneumococcal Vaccine: 50+ Years (1 of 1 - PCV) 1990 Zoster Vaccine (1 of 2) 1990 RSV Vaccine (1 - 1-dose 75+ series) 2015 COVID-19 Vaccine (3 - Modern a risk series) 02/16/2021 01/19/2021, 12/22/2020 Influenza Vaccine (#1) 2025 Osteoporosis Screening Completed , 03/20/2025 HPV Vaccine Aged Out No longer eligi ble based on patient's age to complete this topic Hepatitis A Vaccine Aged Out No longe r eligible based on patient's age to complete this topic Hepatitis B Vaccine Aged Out No longe r eligible based on patient's age to complete this topic Meningococcal B Vaccine Aged Out No l onger eligible based on patient's age to complete this topic Procedures Procedure Name Priority Date/Time Associated Diagnosis Comments PREMANAGE Routine 08/01/2025 9:[address] MID BODY Routine 07/15/2025 10:39 AM PDT Malignant neoplasm of lower third of esophagus (HCC) POC GLUCOSE, WHOLE BLOOD [facility] MANUAL Routine 07/15/2025 8:40 AM PDT Malignant neoplasm of lower third of esophagus (HCC) Dehydration CA 19-9 Routine 07/15/2025 8:38 AM PDT Malignant neoplasm of lower third of esophagus (HCC) CARCINOEMBRYONIC ANTIGEN Routine 025 8:38 AM PDT Malignant neoplasm of lower third of esophagus (HCC) COMPREHENSIVE METABOLIC PANEL Routine 07/15/2025 8:38 AM PDT Malignant neoplasm of lower third of esophagus (HCC) CBC, ABS NEUTROPHIL Routine 07/15/2025 8 :38 AM PDT Malignant neoplasm of lower third of esophagus (HCC) from Last 3 Months Results * PREMANAGE (08/01/2025 9:55 PM PDT) 08/01/2025 9:55 PM PDT Narrative [facility] - 08/01/2025 9:32 PM PDT Patient has visited an external emergency department or has been hospitalized outside of Medicine --MOST RECENT VISIT-- ED Admit:08/01/25 18:51 ED Discharge:08/01/25 19:55 Location:[facility] Attending Provider:Priyank Encounter Type:Emergency Major Class:Emergency Chief Complaint:L SIDE BURNING Diagnosis: ED/[facility] VISIT TRACKING (3 MO.) Visit Date Location [facility] Type Dx/Complaint -------- ------- ---- 08/01/2025 18:51 [facility] [place]. [place] Emergency L SIDE BURNING 06/02/2025 13:44 [facility] [place] Emergency -Dehydration -Pain in throat -diarrhea -Multiple Complaints INPATIENT VISIT TRACKING (1 MO.) Visit Date Location [facility] Type Dx/Complaint -------- ------- ---- ED VISIT COUNT (12 MO.) Visits Location ------ --------- 1 [facility] 1 [facility] 2 Total Note: Visits indicate total known visits. --CARE GUIDELINES-- (Below are the most recent care guidelines entered by a Medicine care provider in [facility]. If Medicine guidelines do not exist in [facility], the most recent care guideline entered by an external hospital care provider is displayed.) [facility] has no Care Guidelines for this patient. Security Events No recent Security Events currently on file --CARE PROVIDERS-- CARE PROVIDERS Name Phone Type Service Dates ---- ----- ---- CALLIE PRASAD Unknown Family Medicine Unknown - Current Procedure Note EXTERNAL ED PHYSICIAN - 08/01/2025 Patient has visited an external emergency department or has beenhospitalized outside of [facility] --MOST RECENT VISIT-- ED Admit:08/01/25 18:51 ED Discharge:08/01/25 19:55 Location:[facility] Attending Provider:Priyank Encounter Type:Emergency Major Class:Emergency Chief Complaint:L SIDE BURNING Diagnosis: ED/[facility] VISIT TRACKING (3 MO.) Visit Date Location [facility] TypeDx/Complaint -------- ------- 08/01/2025 18:51 [facility] [place]. [facility] L SIDE BURNING 06/02/2025 13:44 [facility] [place] -Dehydration -Pain in throat -diarrhea -Multiple Complaints INPATIENT VISIT TRACKING (1 MO.) Visit Date Location [facility] Type Dx/Complaint -------- ------- ---- ED VISIT COUNT (12 MO.) Visits Location ------ --------- 1 [facility] 1 [facility] 2 Total Note: Visits indicate total known visits. --CARE GUIDELINES-- (Below are the most recent care guidelines entered by a Medicine careprovider in [facility]. If Medicine guidelines do not exist in [facility], the mostrecent care guideline entered by an external hospital care provider isdisplayed.) [facility] has no Care Guidelines for this patient. Security Events No recent Security Events currently on file --CARE PROVIDERS-- CARE PROVIDERS Name Phone Type ServiceDates ---- ----- CALLIE PRASAD Family Medicine Unknown -Current us External Ed Physician OTHER Final Resu lt [facility] * PET CT F-18 FDG Mid Body (07/15/2025 10:39 AM PDT) Anatomical Region Laterality Modality Body Positron Emissio n Tomography (PET) 07/18/2025 2:20 PM PDT Impressions 07/18/2025 2:51 PM PDT 85 year old with esophageal cancer. 1. No findings on FDG PET to suggest residual disease or metastases. Please note, sensitivity is limited due to low level uptake of the primary. 2. Post radiation changes in the liver and thoracic spine. 3. Mild uptake in a hypodense nodule within left lobe of thyroid. At clinical discretion, could consider ultrasound for further evaluation. Narrative 07/18/2025 2:51 PM PDT EXAMINATION: PET CT MID BODY CLINICAL INDICATION: Esophageal cancer, restaging s/p chemoRT. Imaging requested for restaging. Subsequent treatment strategy. RADIOPHARMACEUTICAL: FLUORODEOXYGLUCOSE F-18 FDG [facility] INJECTION,10.21 millicurie Intravenous,07/15/2025 1039 Injection site: Left antecubital fossa TECHNIQUE: Extent: Skull vertex to proximal thighs. Uptake time: 61 minutes. Fasting blood glucose level prior to FDG injection: 86 mg/dL. After radiopharmaceutical injection, nondiagnostic, noncontrast, nonbreathhold CT images were obtained for attenuation correction and fusion with emission PET images for anatomical localization. Images were interpreted on [employer] PACS. COMPARISON: 03/21/[address] FINDINGS: Mediastinal blood pool mean SUV: 1.59 Mediastinal blood pool maximum SUV: 1.16 Liver mean SUV: 1.26. Head and neck: 1.3 x 1.6 cm hypodense nodule in the left lobe of thyroid with mild uptake SUV max 3.0. Chest: Mild uptake in bilateral hilar nodes, nonspecific, likely reactive. Findings the uptake and mediastinal nodes, similar to prior, likely inflammatory. For example sub-6 mm right tracheobronchial node SUV max 1.7 (12/121, 3/135). Abdomen and Pelvis: Increased FDG uptake within hypodense area of the left lobe, consistent with postradiation inflammation. Osseous structures: Relative photopenia in the lower thoracic spine, post radiation. Postsurgical uptake in left proximal femur, similar to prior. Extremities: Unremarkable. Additional noncontrast CT findings: * Bilateral lens replacements. Small bilateral pulmonary nodules, measuring up to 3 mm (4/). Mild coronary calcifications. Calcified foci of the bilateral breasts. Small hiatal hernia. Hypodense liver lesions, non FDG avid, stable. Atherosclerotic calcifications of aorta. Diverticulosis without evidence of diverticulitis. Rate 1 anterolisthesis of L4 on L5. Degenerative changes throughout the spine. Metallic hardware within the left hip. Analia Hallman PA-C IMG NM PROCEDURES Final Result * POC Glucose, Whole Blood [facility] Manual (07/15/2025 8:40 AM PDT) [facility] Glucose, POCT 86 62 - 125 mg/dL [facility], [address] Blood 07/15/2025 8:40 AM PDT Analia Hallman PA-C LAB POINT OF CARE TEST ENTER EDIT ORDERABLES Final Result [facility], [address] [place] [address] * CA 19-9 (07/15/2025 8:38 AM PDT) [facility] Ca 19-9 6 0 - 54 U/mL 07/15/2025 9:31 AM PDT [facility] Clinical Laboratories Comment: This result was generated by the [employer] 2 automated immunoassay analyzer in the [facility] laboratory. Blood 07/15/2025 8:38 AM PDT Analia Hallman PA-C LAB BLOOD ORDERABLES Fi nal Result [facility] [address] [place] [address], [facility] [phone] [facility] Clinical Laboratories [address] [place] [address] * (ABNORMAL) CBC w/Absolute Neutrophil Count (07/15/2025 8:38 AM PDT) Pathologist [facility] WBC 6.42 4.3 - 10.0 10*3/uL 07/15/2025 8:52 AM PDT [facility] Clinical Laboratories RBC 4.26 3.80 - 5.00 10*6/uL 07/15/2025 8:52 AM PDT [facility] Laboratories Hemoglobin 12.8 11.5 - 15.5 g/dL 07/15/2025 8:52 AM PDT [facility] Laboratories Hematocrit 39 36.0 - 45.0 % 07/15/2025 8:52 AM PDT [facility] Laboratories MCV 91 81 - 98 fL 07/15/2025 8:52 AM PDT [facility] Laboratories MCH 30.0 27.3 - 33.6 pg 07/15/2025 8:52 AM PDT [facility] Laboratories MCHC 33.2 32.2 - 36.5 g/dL 07/15/2025 8:52 AM PDT [facility] Laboratories Platelet Count 237 150 - 400 10*3/uL 07/15/2025 8:52 AM PDT [facility] Clinical Laboratories RDW-CV 14.6(H) 11.0 - 14.5 % 07/15/2025 8:52 AM PDT [facility] Laboratories Neutrophils 4.06 1.80 - 7.00 10*3/uL 07/15/2025 8:52 AM PDT [facility] Laboratories Immature Granulocytes 0.03 0.00 - 0.05 10*3/uL 07/15/2025 8:52 AM PDT [facility] Laboratories Absolute Neutrophil Comment Comment not required 07/15/2025 8:52 AM PDT [facility] Laboratories Nucleated RBC 0.00 0.00 10*3/uL 07/15/2025 8:52 AM PDT [facility] % Nucleated RBC 0 % 8:52 AM PDT [facility] Blood 07/15/2025 8:38 AM PDT Analia Hallman PA-C LAB BLOOD ORDERABLES Fi nal Result [facility] [address] [place] [address], [facility] [phone] [facility] Clinical Laboratories [address] [place] [address] * (ABNORMAL) Comprehensive Metabolic Panel (07/15/2025 8:38 AM PDT) Sodium 140 135 - 145 meq/L 07/15/2025 9:20 AM PDT [facility] Laboratories Potassium 4.2 3.6 - 5.2 meq/L 07/15/2025 9:20 AM PDT [facility] Laboratories Chloride 104 98 - 108 meq/L 07/15/2025 9:20 AM PDT [facility] Laboratories Carbon Dioxide, Total 31 22 - 32 meq/L 07/15/2025 9:20 AM PDT [facility] Laboratories Anion Gap 5 4 - 12 07/15/2025 9:20 AM PDT [facility] Laboratories Glucose 92 62 - 125 mg/dL 07/15/2025 9:20 AM PDT [facility] Laboratories Urea Nitrogen 22(H) 8 - 21 mg/dL 07/15/2025 9:20 AM PDT [facility] Laboratories Creatinine 0.71 0.38 - 1.02 mg/dL 07/15/2025 9:20 AM PDT [facility] Laboratories Protein (Total) 7.0 6.0 - 8.2 g/dL 07/15/2025 9:20 AM PDT [facility] Laboratories Albumin 4.2 3.5 - 5.2 g/dL 07/15/2025 9:20 AM PDT [facility] Laboratories Bilirubin (Total) 0.6 0.2 - 1.3 mg/dL 07/15/2025 9:20 AM PDT [facility] Laboratories Calcium 9.8 8.9 - 10.2 mg/dL 07/15/2025 9:20 AM PDT [facility] Laboratories AST (GOT) 18 9 - 38 U/L 07/15/2025 9:20 AM PDT [facility] Laboratories Alkaline Phosphatase (Total) 81 49 - 199 U/L 07/15/2025 9:20 AM PDT [facility] Laboratories ALT (GPT) 12 7 - 33 U/L 07/15/2025 9:20 AM PDT [facility] Clinical Laboratories eGFR by CKD-EPI 2020 >60 >59 mL/min/1.7 3_m2 07/15/2025 9:20 AM PDT [facility] Laboratories Blood 07/15/2025 8:38 AM PDT Analia BRAXTON-C LAB BLOOD ORDERABLES Fi nal Result Performing Organization Address [facility]/ZIP Co de Phone Number [facility] [address] [place] [phone], [facility] [phone] [facility] Clinical Laboratories [address] [place] [phone] * Carcinoembryonic Antigen (07/15/2025 8:38 AM PDT) Carcinoembryonic Antigen 1.6 0.0 - 5.0 ng/mL 07/15/2025 9:31 AM PDT [facility] Laboratories Comment: This result was generated by the [employer] 2 automated immunoassay analyzer in the [facility] laboratory. Blood 07/15/2025 8:38 AM PDT Analiadavid BRAXTON-C LAB BLOOD ORDERABLES Fi nal Result Performing Organization Address [facility]/State/ZIP Co de Phone Number [facility] [address] [place] [phone], [facility] [phone] [facility] Clinical Laboratories [address] [place] [phone] from Last 3 Months Insurance FORMERLY [facility] MEDICARE SUPPLEMENT Member Subscriber Plan / Payer (Ef fective 2024-) Name:Tova Ramirez Relation to Subscriber:Self Name:AntoineTova jerome Payer ID:[id number] (NAIC) Group ID:Not on file Type:[employer] Address: [address] [address] MEDICARE MEDICARE [facility]LY [facility] MEDICARE SUPPLEMENT Care Teams Candle Extrusion Machine Operator Relationship Specialty Start Date End Date Yefri Means MD [facility] [address] [place] [address] PCP - General Internal Medicine 03/27/25 Jorje Harrison MD [address] [place] [phone] Otolaryngology 03/27/25 Marshal Gallagher MD [facility] [address] [place] [address] Gastroenterology 03/27/25 Catherine Nieves MD [address] [place] [address] [address] [place] [address] Cardiology 03/27/25 Laila Farris MD [address] [place] [address] Oncologist Medical Oncology 03/28/25 Samm Agee MD [address] [place] [address] Radiation Oncology 03/28/25 Edmund Morrison MD [address] [facility] [address] [place] [address] Surgical Oncologist General Surgery 04/09/[address] [facility] [id number] [place] [address] Dietitian Dietitian-Wedding Coordinator 04/18/25
--- OUTSIDE RECORDS SUMMARY | 2025-10-11 13:29 | XMS_ITS | Encounter Summary ---
Author Organization [facility] Address [address] [place] [address] Care Team Providers Care Cytogenetics Technologist Name Role Phone Evi Hoffman MD Primary Care Provider [phone] Encounter Details Date Type Department Care Team (Late st Contact Info) Description 02/11/2025 Orders Only [facility] Gastroenterology [address] [address] Marshal Gallagher MD [address] [address] Generalized abdominal pain Social History Tobacco Use Types Packs/Day Years [...] on file documented as of this encounter Functional Status * Question Answer Date of Assessment Author History of Falling 0 02/11/2025 1:51 PM PDT Deniz Arita RN * Question Answer Date of Assessment Author Sensory Perceptions 4 02/11/2025 1:52 PM PD T Deniz Arita RN Moisture 4 02/11/2025 1:52 PM PDT Deniz Zamora RN Activity 4 02/11/2025 1:52 PM PDT Deniz Zamora RN Mobility 4 02/11/2025 1:52 PM PDT Deniz Zamora RN Nutrition 3 02/11/2025 1:52 PM PDT Deniz Zamora RN Friction and Shear 3 02/11/2025 1:52 PM PDT Deniz Arita RN Albert Scale Score 22 02/11/2025 1:52 PM Deniz Cuadra RN * Modified Darius Question Answer Date of Assessment Author Activity 2 02/11/2025 2:50 PM PDT Deniz Zamora RN Respiration 2 02/11/2025 2:50 PM PDT Deniz Zamora RN Circulation 2 02/11/2025 2:50 PM PDT Deniz Zamora RN Consciousness 2 02/11/2025 2:50 PM PDT Joseiv eyDeniz RN Oxygen Saturation 2 02/11/2025 2:50 PM Deniz Cuadra RN Modified Darius Score 10 02/11/2025 2:50 PM Deniz Cuadra RN documented as of this encounter Plan of Treatment Upcoming Encounters Date Type Department Care Team (Late st Contact Info) Description 01/13/2026 1:00 PM PST Office Visit [facility] Ear, Nose and Throat [address] [address] Jorje Harrison MD [address] [address] documented as of this encounter Procedures Procedure Name Priority Date/Time Associated Diagnosis Comments CT ABDOMEN PELVIS WITH CONTRAST Urgent (Imaging Only) 02/08/2025 Generalized abdominal pain documented in this encounter Results * CT ABDOMEN PELVIS WITH CONTRAST (02/08/2025) Anatomical Region Laterality Modality Body N/A Computed Tomogra phy us Marshal Gallagher MD [facility] CT PROCEDURES Final Resu lt documented in this encounter Visit Diagnoses Diagnosis Generalized abdominal pain Abdominal pain, generalized documented in this encounter Care Teams Cytogenetics Technologist Relationship Specialty [place] [address] [place] [id number] PCP - General Family Medicine 10/11/25 documented as of this encounter
--- OUTSIDE RECORDS SUMMARY | 2025-10-11 13:29 | XMS_ITS | Encounter Summary ---
Author Organization [facility] gt Address [address] [place] [address] Care Team Providers Care Filling Station Laborer Name Role Phone Yefri Means MD Primary Care Provider Jorje Harrison MD Unavailable [phone] Marshal Gallagher MD Unavailable [phone] Catherine Nieves MD Unavailable [phone] Laila Farris MD Unavailable [phone] Samm Agee MD Unavailable [phone] Edmund Morrison MD Unavailable [phone] Unavailable Unavailabl e Encounter Details Date Type Department Care Team (Late st Contact Info) Description 03/14/2025 Orders Only Medicine Radiology Medicine, [address], [place] [address] [place] [address] External, Imaging Ordering Provider [address] [facility] [id number] [place] [address] Social History Tobacco Use Types Packs/Day Years [...] Description 10/11/2025 12:51 PM PST Hospital Encounter [facility] [address], [id number] [place] [address] Dx: Aortic valve stenosis, nonrheumatic Scheduled Orders Name Type Priority Associated Diagnoses Orde r Schedule [id number] Images are Ready Imaging Or dered: 10/09/2025 Scheduled Procedures Name Priority Associated Diagnoses Date/Ti me TRANSCATHETER AORTIC VALVE REPLACEMENT (TAVR) Aortic stenosis documented as of this encounter Visit Diagnoses Not on filedocumented in this encounter Additional Health Concerns Infection Onset Date Last Indicated Resolved Time R/O COVID-19 04/24/2025 04/24/2025 04/24/2025 11:0 9 AM PDT documented as of this encounter Care Teams Filling Station Laborer Relationship Specialty Start Date End Date Yefri Means MD [facility] [address] [place] [address] PCP - General Internal Medicine 03/27/25 Jorje Harrison MD [address] [place] [address] Otolaryngology 03/27/25 Marshal Gallagher MD [facility] [address] [place], [place] [id number] Gastroenterology 03/27/25 Catherine Nieves MD [facility] [address] [place] [address] [address] [place] [address] Cardiology 03/27/25 Laila Farris MD [address] [place] [address] Oncologist Medical Oncology 03/28/25 Samm Agee MD [address] [place] [address] Radiation Oncology 03/28/25 Edmund Morrison MD [address] [facility] [id number] [place] [address] Surgical Oncologist General Surgery 04/09/[address] [facility] [address] [place] [address] Dietitian Dietitian-Cyanide Pot Tender 04/18/25 documented as of this encounter
== END ==
LOC: MRI 08:00
PROVIDERS: PCP Student in an Organized Health Care Education/Training Program; Referring Provider Physician Assistant Surgical; Visit Provider Physician Assistant Surgical
DX: M16.11 Unilateral primary osteoarthritis, right hip (principal); S76.011A Strain of muscle, fascia and tendon of right hip, initial encounter; S73.191A Other sprain of right hip, initial encounter; M25.551 Pain in right hip
CPT/HCPCS: 73723; A9579